=== PATIENT | male | born 1950 | race Caucasian/White ===

== ENCOUNTER 2016-09-18 21:30 | Observation (INO) | payer OTHER ==
[~2016-09-18] VITALS: Ht 167.6 cm; Wt 78.0 kg
[2016-09-18 21:31] VITALS: BP 191/102; PULSE 100; RESP 16; TEMP 98.5; O2SAT 97
[2016-09-18] MEDS ORDERED: MULT1TAB85 PO (22:11)
[2016-09-18] MEDS ORDERED: ASPI1TAB69 PO (22:11)
--- NOTE | 2016-09-18 22:11 | PD ---
Physical Exam Time Seen by Provider: 20:08 Narrative 65 y/o male presents with sob for 4 days. Dyspnea with exertion. Denies cp, cough or congestion, Lower extremity edema. Flew to [facility] 3 weeks ago. Reports that he drives frequently. denies hx of chf, cad, dvt/pe. vss Seen at triage desk. Awaiting bed placement. Data Data Last Documented VS Vital Signs Date Time Temp Pulse Resp B/P Pulse Ox O2 Delivery O2 Flow Rate FiO2 09/18/16 21:31 98.5 100 16 191/102 97 Room Air [facility] Medical Record Reviewed: Yes Supervised Visit with PIA: Jefe Montiel September 18, 2016 22:11
[2016-09-19] VITALS (12 sets, daily range): BP systolic 125–182; BP diastolic 71–106; PULSE 70–98; RESP 16–22; TEMP 96.2–98.7; O2SAT 92–96
[2016-09-19] MEDS ORDERED: SODIUM CHLORIDE 0.9% FLUSH 10 ML FLUSH IVF PRN (00:15)
[2016-09-19 00:51] LABS: AUTOMATED NEUTROPHIL # 7.1 TH/MM3 (1.8-7.7); BASOPHIL # 0.1 TH/MM3 (0-0.2); EOSINOPHIL # 0.1 TH/MM3 (0-0.4); EOSINOPHIL % 0.8 % (0.0-4.0); HEMATOCRIT 39.5 % (39.0-51.0); HEMO FLAGS DIFF FINAL; LYMPH % 27.5 % (9.0-44.0); LYMPHOCYTE # 3.4 TH/MM3 (1.0-4.8); MEAN CORPUSCULAR HEMOGLOBIN 27.5 PG (27.0-34.0); MEAN CORPUSCULAR HGB CONC 33.6 % (32.0-36.0); MONO % 13.1 % (0.0-8.0); NEUT % 57.6 % (16.0-70.0); PLATELET COUNT 198 TH/MM3 (150-450); RED BLOOD COUNT 4.82 MIL/MM3 (4.50-5.90); RED CELL DISTRIBUTION WIDTH 13.7 % (11.6-17.2); WHITE BLOOD COUNT 12.4 TH/MM3 (4.0-11.0)
--- NOTE | 2016-09-19 00:51 | RADRPT ---
EXAM DATE/TIME: 09/19/2016 00:02 [facility] COMPARISON: No previous studies available for comparison. INDICATIONS : Shortness of breath. MEDICAL HISTORY : None. SURGICAL HISTORY : None. ENCOUNTER: Initial ACUITY: 3 days PAIN SCORE: 0/10 LOCATION: Bilateral chest FINDINGS: The cardiac silhouette is enlarged in transverse diameter. The lungs are free of acute parenchymal op acity. No effusions are identified. The aortic knob is prominent with tortuosity of the descending th oracic aorta. CONCLUSION: 1. Cardiomegaly. No acute pulmonary disease. Syed Edmonds MD on September 19, 2016 at 0:49 Board Certified Radiologist. This report was verified electronically.
--- NOTE | 2016-09-19 01:07 | PD ---
HPI . Dyspnea Chief Complaint: Respiratory Symptoms Time Seen by Provider: 01:04 Travel History International Travel<30 days: No Contact w/Intl Traveler<30days: No Traveled to known affect area: No History of Present Illness HPI Patient presents complaining with dyspnea on exertion for 3-4 days. The symptoms have waxed and waned. 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 He denies any chest pain. He does admit to mild ankle swelling. He denies any previous similar history. He denies any chronic medical problems. He states that he has not seen a physician for checkup in 5 years or so. His dyspnea is exacerbated by ambulation and by lying on his side. No relieving symptoms. Symptoms are mild. PFSH Past Medical History Medical History: Denies Significant Hx Tetanus Vaccination: > 5 Years Influenza Vaccination: No Past Surgical History Surgical History: No Previous Surgery Social History Alcohol Use: No Tobacco Use: Yes (1 PPD) Substance Use: No Allergies-Medications (Allergen,Severity, Reaction): Coded Allergies: No Known Allergies (Unverified , 09/19/16) Reported Meds & Prescriptions Reported Meds & Active Scripts Active Reported Multivitamin Men (Multiple Vitamins W/ Minerals) 1 Tab Tab 1 Tab PO DAILY Aspirin 81 Mg Tabdr 81 Mg PO DAILY Review of Systems Except as stated in HPI: all other systems reviewed are Neg General / Constitutional: No: Fever, Chills Cardiovascular: No: Chest Pain or Discomfort Respiratory: Positive: Shortness of Breath Musculoskeletal: Positive: Edema Physical Exam Narrative GENERAL: Patient is awake and alert and in no acute distress. SKIN: Warm and dry. HEAD: Atraumatic. Normocephalic. EYES: Pupils equal and round. Extraocular movements are intact. ENT: No nasal bleeding or discharge. Mucous membranes pink and moist. NECK: Trachea midline. Neck is supple. CARDIOVASCULAR: Regular rate and rhythm. Heart sounds are normal. RESPIRATORY: No accessory muscle use. Lungs sound clear with full air movement throughout. His respiratory rate on arrival was 16 with a sat of 90% on room air. GASTROINTESTINAL: Abdomen soft, non-tender, nondistended. MUSCULOSKELETAL: No obvious deformities. Trace ankle edema. NEUROLOGICAL: Awake and alert. No obvious cranial nerve deficits. Motor grossly within normal limits. Normal speech. PSYCHIATRIC: Appropriate mood and affect; insight and judgment normal. Data Data Last Documented VS Vital Signs Date Time Temp Pulse Resp B/P Pulse Ox O2 Delivery O2 Flow Rate FiO2 09/19/16 02:20 95 Nasal Cannula 3 09/19/16 00:07 95 18 177/106 09/18/16 21:31 98.5 Orders Complete Blood Count With Diff (09/19/16 00:04) Comprehensive Metabolic Panel (09/19/16 00:04) B-Type Natriuretic Peptide (09/19/16 00:04) D-Dimer (09/19/16 00:04) Magnesium (Mg) (09/19/16 00:04) Ckmb (Isoenzyme) Profile (09/19/16 00:04) Troponin I (09/19/16 00:04) Iv Access Insert/Monitor (09/19/16 00:04) Electrocardiogram (09/19/16 00:04) Ecg Monitoring (09/19/16 00:04) Oximetry (09/19/16 00:04) Oxygen Administration (09/19/16 00:04) Chest, Single Ap (09/19/16 00:04) Sodium Chloride 0.9% Flush (Ns Flush) (09/19/16 00:15) Aspirin Chew (Aspirin Chew) (09/19/16 01:15) Nitroglycerin 2% Oint (Nitroglycerin 2% (09/19/16 01:15) Furosemide Inj (Lasix Inj) (09/19/16 01:15) Ct Pulmonary Angiogram (09/19/16 01:40) Iohexol 350 Inj (Omnipaque 350 Inj) (09/19/16 01:53) Labs Laboratory Tests Test 09/19/16 00:35 White Blood Count 12.4 TH/MM3 Red Blood Count 4.82 MIL/MM3 Hemoglobin 13.3 GM/DL Hematocrit 39.5 % Mean Corpuscular Volume 82.0 FL Mean Corpuscular Hemoglobin 27.5 PG Mean Corpuscular Hemoglobin 33.6 % Concent Red Cell Distribution Width 13.7 % Platelet Count 198 TH/MM3 Mean Platelet Volume 8.1 FL Neutrophils (%) (Auto) 57.6 % Lymphocytes (%) (Auto) 27.5 % Monocytes (%) (Auto) 13.1 % Eosinophils (%) (Auto) 0.8 % Basophils (%) (Auto) 1.0 % Neutrophils # (Auto) 7.1 TH/MM3 Lymphocytes # (Auto) 3.4 TH/MM3 Monocytes # (Auto) 1.6 TH/MM3 Eosinophils # (Auto) 0.1 TH/MM3 Basophils # (Auto) 0.1 TH/MM3 CBC Comment DIFF FINAL Differential Comment D-Dimer Quantitative (PE/DVT) 1.07 MG/L FEU Sodium Level 139 MEQ/L Potassium Level 3.9 MEQ/L Chloride Level 105 MEQ/L Carbon Dioxide Level 26.7 MEQ/L Anion Gap 7 MEQ/L Blood Urea Nitrogen 11 MG/DL Creatinine 0.86 MG/DL Estimat Glomerular Filtration 89 ML/MIN Rate Random Glucose 90 MG/DL Calcium Level 8.5 MG/DL Magnesium Level 1.8 MG/DL Total Bilirubin 0.9 MG/DL Aspartate Amino Transf 27 U/L (AST/SGOT) Alanine Aminotransferase 30 U/L (ALT/SGPT) Alkaline Phosphatase 93 U/L Total Creatine Kinase 91 U/L Troponin I 0.07 NG/ML B-Type Natriuretic Peptide 1221 PG/ML Total Protein 7.5 GM/DL Albumin 3.5 GM/DL MDM Medical Decision Making Medical Screen Exam Complete: Yes Emergency Medical Condition: Yes Interpretation(s) EKG shows a sinus rhythm. Inverted T waves in V5 and V6. He has no old EKGs for comparison. Differential Diagnosis Differential diagnosis of dyspnea includes but is not limited to congestive heart failure, pneumonia, wheezing, pneumothorax, pulmonary embolism Narrative Course Patient presents with dyspnea on exertion and possibly orthopnea. He also has mild ankle edema. Last Impressions Chest X-Ray 09/19/16 0004 Signed Impressions: Service Date/Time: Monday, September 19, 2016 00:02 - CONCLUSION: 1. Cardiomegaly. No acute pulmonary disease. Syed Edmonds MD The chest x-ray was independently viewed by me. CBC Diagram 09/19/16 00:35 BMP Diagram 09/19/16 00:35 Troponin is 0.07. BNP is 1221. D-dimer 1.07. Subsequent CT for PE is negative for PE. This patient has new onset CHF.. Physician Communication Physician Communication Dr. Lanier will admit for further evaluation and treatment. Diagnosis Primary Impression: CHF (congestive heart failure) Qualified Code: I50.9 - Acute congestive heart failure, unspecified congestive heart failure type Admitting Information Admitting Physician Requests: Admit Condition: Stable Oeters,Adenike Brea MD September 19, 2016 01:07
[2016-09-19] MEDS ORDERED: ASPIRIN 81 MG CHEW TAB CHEW ONE (01:15)
[2016-09-19] MEDS ORDERED: FUROSEMIDE 40 MG/4 ML VIAL IV PUSH ONE (01:15)
[2016-09-19] MEDS ORDERED: NITROGLYCERIN 2% OINT 1 GM PACKET TOPICAL ONE (01:15)
[2016-09-19 01:20] LABS: ALT (GPT) 30 U/L (12-78); ANION GAP 7 MEQ/L (5-15); AST (GOT) 27 U/L (15-37); BICARBONATE 26.7 MEQ/L (21.0-32.0); BLOOD UREA NITROGEN 11 MG/DL (7-18); CHLORIDE 105 MEQ/L (98-107); GLOMERULAR FILTRATION RATE 89 ML/MIN (>89); MAGNESIUM 1.8 MG/DL (1.5-2.5); POTASSIUM 3.9 MEQ/L (3.5-5.1); SODIUM (NA) 139 MEQ/L (136-145)
[2016-09-19 01:24] LABS: ALKALINE PHOSPHATASE 93 U/L (45-117); TOTAL BILIRUBIN ADULT 0.9 MG/DL (0.2-1.0)
[2016-09-19 01:25] LABS: CREATINE KINASE 91 U/L (39-308)
[2016-09-19] MEDS ORDERED: IOHEXOL 350 MG/ML 10 ML VIAL (for RAD DIAG) IV ONE (01:53)
--- NOTE | 2016-09-19 02:16 | RADRPT ---
EXAM DATE/TIME: 09/19/2016 01:52 [facility] COMPARISON: CHEST SINGLE AP, September 19, 2016, 0:02. INDICATIONS : Short of breath. IV CONTRAST: 74 cc Omnipaque 350 (iohexol) IV RADIATION DOSE: 23.45 CTDIvol (mGy) MEDICAL HISTORY : None SURGICAL HISTORY : None. ENCOUNTER: Initial ACUITY: 3 days PAIN SCALE: 0/10 LOCATION: chest TECHNIQUE: Volumetric scanning of the chest was performed using a pulmonary embolism protocol MIP images were re constructed. Using automated exposure control and adjustment of the mA and/or kV according to patien t size, radiation dose was kept as low as reasonably achievable to obtain optimal diagnostic quality images. FINDINGS: Small bilateral pleural effusions are present right greater than left. There is subsegmental atelecta sis in the left base. Examination of the mediastinum demonstrates no abnormally enlarged lymph nodes by CT criteria. No axillary or hilar abnormalities are identified. Coronary artery calcifications are present. The visualized upper abdomen demonstrates no abnormality. The heart is enlarged. Examination of the pulmonary vasculature demonstrates good filling of the main, lobar and segmental b ranches. There are no filling defects to suggest pulmonary embolism. Multiplanar reconstructions are also unremarkable. CONCLUSION: 1. No evidence of pulmonary embolism. 2. Cardiomegaly and small bilateral effusions Syed Edmonds MD on September 19, 2016 at 2:12 Board Certified Radiologist. This report was verified electronically.
[2016-09-19] MEDS ORDERED: SODIUM CHLORIDE 0.9% FLUSH 10 ML FLUSH IV FLUSH PRN (03:15)
[2016-09-19] MEDS ORDERED: NALOXONE HCL 0.4 MG/ML AMP IV PRN (03:15)
--- NOTE | 2016-09-19 04:22 | HHI.HP ---
[facility] Service [place] [facility] Primary Care Physician No Primary Care Physician Admission Diagnosis CHF Diagnoses: (1) CHF (congestive heart failure) (2) Leukocytosis (3) Tobacco abuse Chief Complaint: Fatigue and shortness of breath Travel History International Travel<30 Days: No Contact w/Intl Traveler <30 Da: No Traveled to Known Affected Are: No History of Present Illness Mr. Benton is a 65 year-old male with tobacco abuse who presented to the ER on for evaluation of complaints of fatigue and shortness of breath. The patient is seen in the emergency room and states that symptoms started on Sunday09/15/16: He states he felt tired and short of breath for much of the day but symptoms resolved spontaneously. On Sunday, he worked outside doing yard work and felt fine. He denies any symptomatology on Sunday. However, on Sunday, he says he felt poorly again and symptoms recurred while walking a mere 20 feet within house. By Sunday09/18/16 he noted that his ankles were swelling and he still felt fatigued and short of breath. He denies any recent fevers, chest pain, cold or flu symptoms, or nausea, vomiting, diarrhea, black stool, red stool, or pain with urination. Reports increased stress. Significant findings: BNP - 1221, Troponin I - 0.07 D-dimer elevated at 1.07 CXR - cardiomegaly; no acute pulmonary disease. CT pulmonary angiogram - no evidence of pulmonary embolism; cardiomegaly and small bilateral effusions. Review of Systems Except as stated in HPI: all other systems reviewed are Neg Past Family Social History Past Medical History Tobacco Abuse . Past Surgical History Denies ever having any surgeries . Reported Medications Reported Meds & Active Scripts Active Reported Multivitamin Men (Multiple Vitamins W/ Minerals) 1 Tab Tab 1 Tab PO DAILY Aspirin 81 Mg Tabdr 81 Mg PO DAILY . Allergies: Coded Allergies: No Known Allergies (Unverified , 09/19/16) Active Ordered Medications Current Medications Sodium Chloride (NS Flush) 2 ml UNSCH PRN IVF FLUSH AFTER USING IV ACCESS Last administered on 09/19/16 02:06; Start 09/19/16 at 00:15; Stop 09/19/16 at 03:21; Status DC Aspirin (Aspirin Chew) 324 mg ONCE ONCE CHEW Last administered on 09/19/16 02: 06; Start 09/19/16 at 01:15; Stop 09/19/16 at 01:16; Status DC Nitroglycerin (Nitroglycerin 2% Oint) 1 inch ONCE ONCE TOPICAL Last administered on 09/19/16 02:06; Start 09/19/16 at 01:15; Stop 09/19/16 at 01:16; Status DC Furosemide (Lasix Inj) 40 mg ONCE ONCE IV PUSH Last administered on 09/19/16 02:06; Start 09/19/16 at 01:15; Stop 09/19/16 at 01:16; Status DC Iohexol (Omnipaque 350 Inj) 74 ml STK-MED ONCE IV Last administered on 01:53; Start 09/19/16 at 01:53; Stop 09/19/16 at 01:55; Status DC Sodium Chloride (NS Flush) 2 ml UNSCH PRN IV FLUSH FLUSH AFTER USING IV ACCESS ; Start 09/19/16 at 03:15 Sodium Chloride (NS Flush) 2 ml BID IV FLUSH ; Start 09/19/16 at 09:00 Naloxone HCl (Narcan Inj) 0.4 mg UNSCH PRN IV SEE LABEL COMMENTS; Start at 03:15 Aspirin (Ecotrin Ec) 325 mg DAILY PO ; Start 09/19/16 at 09:00 . Family History Father - [place] at age 40 Mother lived until the age of 95 . Social History ETOH: [place]- 1 glass per day Tobacco: smokes 1 PPD - states he doesn't smoke the full cigarettes - chews on them more than inhales Works as an senior net engineer . Physical Exam Vital Signs Vital Signs Date Time Temp Pulse Resp B/P Pulse Ox O2 Delivery O2 Flow Rate FiO2 09/19/16 04:00 84 16 149/84 95 Nasal Cannula 3 09/19/16 02:20 95 Nasal Cannula 3 09/19/16 02:00 98 16 182/99 95 Nasal Cannula 3 09/19/16 01:00 92 16 163/99 95 3 09/19/16 00:07 95 18 177/106 94 Room Air 09/18/16 21:31 98.5 100 16 191/102 97 Room Air Physical Exam GENERAL: This is a diaphoretic male patient, in no apparent distress. SKIN: Cool and dry. Multiple linear wounds attributed to Sunday's yard work by patient. HEAD: Atraumatic. Normocephalic. EYES: No scleral icterus. No injection or drainage. ENT: Nose without bleeding, purulent drainage. NECK: Trachea midline. No JVD or lymphadenopathy. CARDIOVASCULAR: Regular rate and rhythm without murmurs, gallops, or rubs. 1+ ankle/pedal edema. RESPIRATORY: Clear to auscultation. Breath sounds equal bilaterally. No wheezes , rales, or rhonchi. GASTROINTESTINAL: Abdomen soft, non-tender, nondistended. No guarding. MUSCULOSKELETAL: Extremities without clubbing, cyanosis, or edema. No calf tenderness. NEUROLOGICAL: Awake and alert. Motor and sensory grossly within normal limits. Normal speech. . . Laboratory Laboratory Tests Test 09/19/16 00:35 White Blood Count 12.4 Red Blood Count 4.82 Hemoglobin 13.3 Hematocrit 39.5 Mean Corpuscular Volume 82.0 Mean Corpuscular Hemoglobin 27.5 Mean Corpuscular Hemoglobin 33.6 Concent Red Cell Distribution Width 13.7 Platelet Count 198 Mean Platelet Volume 8.1 Neutrophils (%) (Auto) 57.6 Lymphocytes (%) (Auto) 27.5 Monocytes (%) (Auto) 13.1 Eosinophils (%) (Auto) 0.8 Basophils (%) (Auto) 1.0 Neutrophils # (Auto) 7.1 Lymphocytes # (Auto) 3.4 Monocytes # (Auto) 1.6 Eosinophils # (Auto) 0.1 Basophils # (Auto) 0.1 CBC Comment DIFF FINAL Differential Comment D-Dimer Quantitative (PE/DVT) 1.07 Sodium Level 139 Potassium Level 3.9 Chloride Level 105 Carbon Dioxide Level 26.7 Anion Gap 7 Blood Urea Nitrogen 11 Creatinine 0.86 Estimat Glomerular Filtration 89 Rate Random Glucose 90 Calcium Level 8.5 Magnesium Level 1.8 Total Bilirubin 0.9 Aspartate Amino Transf 27 (AST/SGOT) Alanine Aminotransferase 30 (ALT/SGPT) Alkaline Phosphatase 93 Total Creatine Kinase 91 Troponin I 0.07 B-Type Natriuretic Peptide 1221 Total Protein 7.5 Albumin 3.5 Result Diagram: 09/19/16 0035 09/19/16 0035 Imaging Current Medications Sodium Chloride (NS Flush) 2 ml UNSCH PRN IVF FLUSH AFTER USING IV ACCESS Last administered on 09/19/16 02:06; Start 09/19/16 at 00:15; Stop 09/19/16 at 03:21; Status DC Aspirin (Aspirin Chew) 324 mg ONCE ONCE CHEW Last administered on 09/19/16 02: 06; Start 09/19/16 at 01:15; Stop 09/19/16 at 01:16; Status DC Nitroglycerin (Nitroglycerin 2% Oint) 1 inch ONCE ONCE TOPICAL Last administered on 09/19/16 02:06; Start 09/19/16 at 01:15; Stop 09/19/16 at 01:16; Status DC Furosemide (Lasix Inj) 40 mg ONCE ONCE IV PUSH Last administered on 09/19/16 02:06; Start 09/19/16 at 01:15; Stop 09/19/16 at 01:16; Status DC Iohexol (Omnipaque 350 Inj) 74 ml STK-MED ONCE IV Last administered on 01:53; Start 09/19/16 at 01:53; Stop 09/19/16 at 01:55; Status DC Sodium Chloride (NS Flush) 2 ml UNSCH PRN IV FLUSH FLUSH AFTER USING IV ACCESS ; Start 09/19/16 at 03:15 Sodium Chloride (NS Flush) 2 ml BID IV FLUSH ; Start 09/19/16 at 09:00 Naloxone HCl (Narcan Inj) 0.4 mg UNSCH PRN IV SEE LABEL COMMENTS; Start at 03:15 Aspirin (Ecotrin Ec) 325 mg DAILY PO ; Start 09/19/16 at 09:00 . Assessment and Plan Problem List: (1) CHF (congestive heart failure) ICD Code: I50.9 Status: Acute (2) Leukocytosis ICD Code: D72.829 Status: Resolved (3) Tobacco abuse ICD Code: Z72.0 Status: Chronic Assessment and Plan CHF - BNP - 1221, Troponin I - 0.07 - Continuous cardiac telemetry to monitor for cardiac arrhythmia - Intake and output every shift to monitor fluid balance - Lasix 20 mg IV twice a day - Consult cardiology - assistance appreciated - 2D echocardiogram - Serial cardiac enzymes to rule out - check TSH to r/o thyroid disease as a contributing factor - check lipid profile to check for hyperlipidemia as a contributing factor Leukocytosis with monocytosis - patient is afebrile and without symptoms of viral illness - will recheck CBC in a.m. and follow results Tobacco abuse - encouraged cessation - patient plans to quit Written by Whitney Lora, acting as scribe for Dr. Lanier on 09/19/16 at 04:14. This note was transcribed by scribe [Whitney Lora]. I, Dr. Melissa Lanier personally performed the history, physical exam, and medical decision making; and confirmed the accuracy of the information in the transcribed note. Authenticated by Dr. Melissa Lanier on 09/19/16 at 04:14. Discussed Condition With Patient and ER physician . Problem Qualifiers (1) CHF (congestive heart failure): Qualified Code: I50.21 - Acute systolic congestive heart failure Whitney Lora September 19, 2016 04:22 Melissa Lanier MD Oct 30, 2016 11:43
[2016-09-19] MEDS ORDERED: ASPIRIN EC 325 MG TABEC PO SCH (09:00)
[2016-09-19] MEDS: SODIUM CHLORIDE 0.9% FLUSH 10 ML FLUSH IV FLUSH SCH ×2 (09:30→20:29)
[2016-09-19] MEDS: FUROSEMIDE 20 MG/2 ML VIAL IV PUSH SCH ×2 (09:30→18:19)
--- NOTE | 2016-09-19 11:08 | EC ---
Study Study Date:09/19/2016 STUDY CONCLUSIONS SUMMARY - Left ventricle: The cavity size was at the upper limits of normal. Systolic function was severely reduced. The estimated ejection fraction was in the range of 20% to 25%. Diffuse hypokinesis. Features are consistent with a pseudonormal left ventricular filling pattern, with concomitant abnormal relaxation and increased filling pressure (grade 2 diastolic dysfunction). - Aortic valve: Mild to moderate regurgitation. - Mitral valve: Mild regurgitation. - Left atrium: The atrium was moderately dilated. - Right atrium: The atrium was mildly dilated. - Tricuspid valve: Mild regurgitation. - Pulmonary arteries: PA peak pressure: 74mm Hg (S). If LV function is below 40, please consider prescribing an ACEI or ARB or document rationale for non-use. PROCEDURE DATA STUDY STATUS: Elective. Procedure: Transthoracic echocardiography. Image quality was good. Scanning was performed from the parasternal, apical, and subcostal acoustic windows. Study completion: The patient tolerated the procedure well. Transthoracic echocardiography. M-mode, complete 2D, complete spectral Doppler, and color Doppler. Patient status: Inpatient. CARDIAC ANATOMY LEFT VENTRICLE: The cavity size was at the upper limits of normal. Systolic function was severely reduced. The estimated ejection fraction was in the range of 20% to 25%. Diffuse hypokinesis. Features are consistent with a pseudonormal left ventricular filling pattern, with concomitant abnormal relaxation and increased filling pressure (grade 2 diastolic dysfunction). AORTIC VALVE: [place]. Doppler: There was no stenosis. Mild to moderate regurgitation. MITRAL VALVE: The valve appears to be grossly normal. Doppler: There was no evidence for stenosis. Mild regurgitation. Peak gradient: 3mm Hg (D). LEFT ATRIUM: The atrium was moderately dilated. PULMONIC VALVE: Not well visualized. Doppler: There was no evidence for stenosis. Trace regurgitation. TRICUSPID VALVE: The valve appears to be grossly normal. Doppler: There was no evidence for stenosis. Mild regurgitation. RIGHT ATRIUM: The atrium was mildly dilated. PERICARDIUM: There was no pericardial effusion. BASIC MEASUREMENTS ADULT Normal Left ventricle LV internal dimension, ED, chordal level, 49.6 mm 43-52 PLAX LV internal dimension, ES, chordal level, *46.5 mm 23-38 PLAX Fractional shortening, chordal level, PLAX *6 % >29 LV posterior wall thickness, ED 8.41 mm IVS/LVPW ratio, ED *1.4 <1.3 Ventricular septum Septal thickness, ED 11.8 mm Aortic valve Leaflet separation 24 mm 15-26 Left atrium Anterior-posterior dimension 52 mm Right ventricle RV internal dimension, ED, PLAX *39.4 mm 19-38 BASIC MEASUREMENTS ADULT Normal Aortic valve Leaflet separation 24 mm 15-26 Aorta Root diameter, ED 36 mm 20-37 DOPPLER MEASUREMENTS ADULT Normal Main pulmonary artery Pressure, S *74 mm Hg =30 Mitral valve Peak E-wave velocity 89.3 cm/s Peak A-wave velocity 43.9 cm/s Peak gradient, D 3 mm Hg Peak E/A ratio 2 Maximal regurgitant velocity 518 cm/s Tricuspid valve Regurgitant peak velocity 296 cm/s Peak RV-RA gradient, S 35 mm Hg Maximal regurgitant velocity 296 cm/s Systemic veins Estimated CVP 20 mm Hg Right ventricle RV pressure, S *74 mm Hg <30 LEGEND: Mean values are shown as u=mean value. Asterisk (*) castro values outside specified normal range. Prepared and signed by Yannick Benson [id number]
--- NOTE | 2016-09-19 11:55 | EKG ---
Date Performed: 09/19/2016 Time Performed: 00:56:03 PTAGE: 65 years EKG: Sinus rhythm POSSIBLE LEFT ATRIAL ENLARGEMENT POSSIBLE LEFT VENTRICULAR HYPERTROPHY AND ST-T CHANGE ABNORMAL ECG NO PREVIOUS TRACING DOCTOR: Francesco Maya Interpretating Date/Time 09/19/2016 11:52:08
[2016-09-19 12:48] LABS: HDL CHOLESTEROL 38.3 MG/DL (40.0-60.0)
--- NOTE | 2016-09-19 12:52 | HHI.PR ---
Subjective Remarks Follow-up for new onset CHF. The patient denies any further shortness of breath. He states that his leg swelling as are improved. Reports good urine output. He states that recently he has been doing a lot of weekend projects, and is normally very active. States that after clearing trees on Sunday, he was feeling very tired on Sunday and Sunday. He denies any chest pain or prior history of AL. He states that he has had to sleep in a chair recently. He does smoke some, but states that he mostly chews on the cigarettes, and would switch back to chewing on toothpicks. He does not currently have a PCP. Objective Vitals Vital Signs Date Time Temp Pulse Resp B/P Pulse Ox O2 Delivery O2 Flow Rate FiO2 09/19/16 12:00 96.3 85 18 139/81 93 09/19/16 08:00 96.2 87 18 131/77 96 09/19/16 07:52 87 09/19/16 04:53 97.8 97 18 166/91 95 09/19/16 04:00 84 16 149/84 95 Nasal Cannula 3 09/19/16 02:20 95 Nasal Cannula 3 09/19/16 02:00 98 16 182/99 95 Nasal Cannula 3 09/19/16 01:00 92 16 163/99 95 3 09/19/16 00:07 95 18 177/106 94 Room Air 09/18/16 21:31 98.5 100 16 191/102 97 Room Air I/O 09/18/16 09/18/16 09/18/16 09/19/16 09/19/16 09/19/16 07:00 15:00 23:00 07:00 15:00 23:00 Output Total 3000 ml Balance -3000 ml Output Urine Total 3000 ml Result Diagram: 09/19/16 0035 09/19/16 [address] Angiography 09/19/16 0140 Signed Impressions: Service Date/Time: Monday, September 19, 2016 01:52 - CONCLUSION: 1. No evidence of pulmonary embolism. 2. Cardiomegaly and small bilateral effusions Syed Edmonds MD Chest X-Ray 09/19/16 0004 Signed Impressions: Service Date/Time: Monday, September 19, 2016 00:02 - CONCLUSION: 1. Cardiomegaly. No acute pulmonary disease. Syed Edmonds MD Objective Remarks GENERAL: Well-developed well-nourished. In no acute distress. SKIN: Warm and dry. No lesions noted. HEENT: Normocephalic. Pupils equal and round. Mucous membranes pink and moist. CARDIOVASCULAR: Regular rate and rhythm. No murmur appreciated. RESPIRATORY: No accessory muscle use. Clear to auscultation. Breath sounds equal bilaterally. GASTROINTESTINAL: Abdomen soft, non-tender, nondistended. Bowel sounds x4. MUSCULOSKELETAL: No obvious deformities. No clubbing or cyanosis. Trace edema. NEUROLOGICAL: Awake and alert. No focal neurological deficits. Moves upper and lower extremities spontaneously. Normal speech. PSYCHIATRIC: Appropriate mood and affect; insight and judgment normal. A/P Problem List: (1) CHF (congestive heart failure) ICD Code: I50.9 Status: Acute (2) Leukocytosis ICD Code: D72.829 Status: Acute (3) Tobacco abuse ICD Code: Z72.0 Status: Chronic Assessment and Plan 65-year-old male with Acute new-onset systolic CHF Echocardiogram shows EF 25% with severe reduction of systolic function and grade 2 diastolic dysfunction. BNP - 1221. Chest CT shows cardiomegaly and small bilateral pleural effusions. Troponin 0.07, 0.06. TSH within normal limits. Lipid profile essentially within normal limits. - Continuous cardiac telemetry to monitor for cardiac arrhythmia - Intake and output every shift to monitor fluid balance - Lasix 20 mg IV twice a day - Consult cardiology - assistance appreciated - Serial cardiac enzymes - Start carvedilol and lisinopril - Continue daily aspirin - Educated on fluid and sodium restrictions Leukocytosis with monocytosis - patient is afebrile and without symptoms of viral illness - will recheck CBC in a.m. and follow results Tobacco abuse - encouraged cessation - patient plans to quit Problem Qualifiers (1) CHF (congestive heart failure): Qualified Code: I50.21 - Acute systolic congestive heart failure Chris Cline September 19, 2016 12:52 Chris Cline September 19, 2016 12:52
[2016-09-19] MEDS: CARVEDILOL 6.25 MG TAB PO SCH ×2 (13:01→20:29)
--- NOTE | 2016-09-19 19:01 | MB ---
cc: OBED LEO MD DATE OF CONSULTATION: 09/19/16 HISTORY OF PRESENT ILLNESS Mr. Benton is a 65 year old white male with no previous cardiac history. Over the last week, he started to develop progressive shortness of breath, generalized weakness, fatigue. He has not had any chest pain. He has had lower extremity edema over the last two days. He was working outside on Sunday and on Sunday he felt poorly. He was diagnosed with congestive heart failure and diuresis was initiated with significant improvement in all of his symptoms. PAST MEDICAL HISTORY Negative for hypertension, dyslipidemia, diabetes mellitus, coronary artery disease or cerebrovascular accident. PAST SURGICAL HISTORY No major surgeries. MEDICATIONS 1. Multivitamin 2. Baby aspirin ALLERGIES None. SOCIAL HISTORY The patient is a smoker and drinks alcohol socially. He works as an project engineer. FAMILY HISTORY Positive for heart disease in his father who had a myocardial infarction at age 40. REVIEW OF SYSTEMS Otherwise negative. PHYSICAL EXAMINATION VITAL SIGNS: Blood pressure 125/73, pulse 70 and regular. HEENT: Negative, 2+ carotid upstrokes, no bruits. LUNGS: Clear. HEART: Regular with no murmurs, rubs or gallops ABDOMEN: Soft, no bruits. EXTREMITIES: With 1+ edema, 2+ distal pulses. NEUROLOGIC: Grossly nonfocal. CARDIOLOGY STUDIES Electrocardiogram was reviewed and showed normal sinus rhythm, left ventricular hypertrophy, diffuse ST-T changes. Echocardiogram reviewed and showed severe left ventricular systolic dysfunction with estimated ejection fraction of 20-35% with severe global hypokinesis, dilated left ventricle, mild to moderate aortic insufficiency, mild mitral regurgitation , four chamber enlargement and pulmonary artery pressure of 74 mmHg. LABORATORY DATA Hemoglobin 13.3, potassium 3.9, creatinine 0.9, troponin 0.07 and 0.06. CK 91 and 78. BNP 1221. LDL 93, HDL 38. DIAGNOSES 1. Acute congestive heart failure 2. Dilated cardiomyopathy with severe left ventricular systolic dysfunction 3. Smoking DISPOSITION Mr. Benton will be monitored on telemetry. We will continue therapy for congestive heart failure including diuresis with furosemide. Therapy with beta kelly and ANDREY inhibitor was initiated. We will closely monitor his renal function. He was strongly encouraged to quit smoking. We will place a Life vest prior to discharge. We will obtain ischemic workup as an outpatient. I will follow him for cardiology during his hospitalization and we will also see him back for followup in our office after discharge. We will repeat echocardiogram in three months and, if there is no improvement of his left ventricular function, we will proceed with the placement of implantable defibrillator. MD ROSE MARIE Armstrong/ /5:16 PM /6:41 PM DEA
[2016-09-20 03:55] VITALS: BP 162/94; PULSE 87; RESP 18; TEMP 98.8; O2SAT 87
[2016-09-20] MEDS ORDERED: ENALAPRILAT 2.5 MG/2 ML VIAL IV PUSH ONE (05:30)
[2016-09-20 05:58] LABS: AUTOMATED NEUTROPHIL # 6.5 TH/MM3 (1.8-7.7); BASOPHIL # 0.1 TH/MM3 (0-0.2); BASOPHIL % 0.8 % (0.0-2.0); EOSINOPHIL # 0.3 TH/MM3 (0-0.4); EOSINOPHIL % 2.5 % (0.0-4.0); HEMATOCRIT 41.1 % (39.0-51.0); HEMO FLAGS DIFF FINAL; LYMPH % 22.5 % (9.0-44.0); LYMPHOCYTE # 2.4 TH/MM3 (1.0-4.8); MEAN CELL VOLUME 82.4 FL (80.0-100.0); MEAN CORPUSCULAR HEMOGLOBIN 27.8 PG (27.0-34.0); MEAN CORPUSCULAR HGB CONC 33.7 % (32.0-36.0); MONO % 12.4 % (0.0-8.0); NEUT % 61.8 % (16.0-70.0); PLATELET COUNT 210 TH/MM3 (150-450); RED BLOOD COUNT 4.98 MIL/MM3 (4.50-5.90); RED CELL DISTRIBUTION WIDTH 13.8 % (11.6-17.2); WHITE BLOOD COUNT 10.5 TH/MM3 (4.0-11.0)
[2016-09-20 06:06] LABS: BICARBONATE 27.8 MEQ/L (21.0-32.0); POTASSIUM 3.5 MEQ/L (3.5-5.1)
[2016-09-20 06:47] VITALS: BP 154/91; PULSE 84; RESP 18; O2SAT 95
[2016-09-20 08:05] VITALS: BP 152/91; PULSE 89; RESP 19; TEMP 98.2; O2SAT 97
[2016-09-20 08:10] VITALS: PULSE 85
[2016-09-20] MEDS ORDERED: LISINOPRIL 10 MG TAB PO SCH (09:00)
[2016-09-20] MEDS ORDERED: ASPIRIN EC 325 MG TABEC PO SCH (09:00)
[2016-09-20] MEDS ORDERED: LISINOPRIL 5 MG TAB PO SCH (09:00)
--- NOTE | 2016-09-20 09:09 | HHI.PR ---
Subjective Remarks Follow-up for new onset CHF. Patient denies any shortness of breath overnight. He states that he walked last night around the unit with his daughter, denies any dyspnea on exertion or chest pain. He understands the need for lifestyle modifications and has questions about that. He understands the need for continued outpatient follow-up. Agreeable for LifeVest, discussed with RN to arrange. The patient has no other acute complaints at this time. Objective Vitals Vital Signs Date Time Temp Pulse Resp B/P Pulse Ox O2 Delivery O2 Flow Rate FiO2 09/20/16 08:05 98.2 89 19 152/91 97 09/20/16 06:47 84 18 154/91 95 09/20/16 03:55 98.8 87 18 162/94 87 09/19/16 23:56 98.7 73 22 154/74 96 09/19/16 23:12 72 09/19/16 19:14 98.5 70 18 144/71 95 09/19/16 16:00 96.2 70 18 125/73 92 09/19/16 12:00 96.3 85 18 139/81 93 I/O 09/19/16 09/19/16 09/19/16 09/20/16 09/20/16 09/20/16 07:00 15:00 23:00 07:00 15:00 23:00 Intake Total 1330 ml 210 ml Output Total 3000 ml 1800 ml 650 ml Balance -3000 ml -470 ml -440 ml Intake Oral 1330 ml 210 ml Output Urine Total 3000 ml 1800 ml 650 ml # Voids 3 # Bowel Movements 0 Result Diagram: 09/20/16 0432 09/20/16 [address] Angiography 09/19/16 0140 Signed Impressions: Service Date/Time: Monday, September 19, 2016 01:52 - CONCLUSION: 1. No evidence of pulmonary embolism. 2. Cardiomegaly and small bilateral effusions Syed Edmonds MD Chest X-Ray 09/19/16 0004 Signed Impressions: Service Date/Time: Monday, September 19, 2016 00:02 - CONCLUSION: 1. Cardiomegaly. No acute pulmonary disease. Syed Edmonds MD Objective Remarks GENERAL: Well-developed well-nourished. In no acute distress. SKIN: Warm and dry. No lesions noted. HEENT: Normocephalic. Pupils equal and round. Mucous membranes pink and moist. CARDIOVASCULAR: Regular rate and rhythm. No murmur appreciated. RESPIRATORY: No accessory muscle use. Clear to auscultation. Breath sounds equal bilaterally. GASTROINTESTINAL: Abdomen soft, non-tender, nondistended. Bowel sounds x4. MUSCULOSKELETAL: No obvious deformities. No clubbing or cyanosis. No edema. NEUROLOGICAL: Awake and alert. No focal neurological deficits. Moves upper and lower extremities spontaneously. Normal speech. PSYCHIATRIC: Appropriate mood and affect; insight and judgment normal. A/P Problem List: (1) CHF (congestive heart failure) ICD Code: I50.9 Status: Acute (2) Leukocytosis ICD Code: D72.829 Status: Resolved (3) Tobacco abuse ICD Code: Z72.0 Status: Chronic Assessment and Plan 65-year-old male with Acute new-onset systolic CHF Echocardiogram shows EF 25% with severe reduction of systolic function and grade 2 diastolic dysfunction. BNP - 1221. Chest CT shows cardiomegaly and small bilateral pleural effusions. Troponin 0.07, 0.06, 0.07. TSH within normal limits. Lipid profile essentially within normal limits. - Telemetry monitoring - Intake and output every shift to monitor fluid balance. Diuresed well,-3000 over the first day and -900 over the second day - Diuresed with IV Lasix, change to oral at discharge - Consulted cardiology, assistance appreciated, recommends continue medical management, LifeVest, and further workup as outpatient - Started carvedilol and lisinopril - Continue daily aspirin - Educated on fluid and sodium restrictions Leukocytosis - patient is afebrile and without symptoms of viral illness - Repeat CBC with improvement and WBCs, elevation was possibly reactive Tobacco abuse - encouraged cessation - patient plans to quit Discharge Planning Discussed with Dr. Alejo, will reevaluate the patient this afternoon. If cleared by cardiology, Discharge patient to home Condition on discharge: Improved Heart healthy Diet as tolerated Regular activity Rx written: Carvedilol, lisinopril Follow-up with primary care physician and cardiology Problem Qualifiers (1) CHF (congestive heart failure): Qualified Code: I50.21 - Acute systolic congestive heart failure Chris Cline September 20, 2016 09:09
[2016-09-20] MEDS ORDERED: FURO1TAB62 PO (09:13)
[2016-09-20] MEDS ORDERED: CARV6.25 PO (09:13)
[2016-09-20] MEDS ORDERED: LISI10TA3 PO (09:13)
[2016-09-20] MEDS ORDERED: ASPIRIN 81 MG CHEW TAB PO SCH (09:21)
[2016-09-20] MEDS: SODIUM CHLORIDE 0.9% FLUSH 10 ML FLUSH IV FLUSH SCH (09:28)
[2016-09-20] MEDS: CARVEDILOL 6.25 MG TAB PO SCH (09:28)
[2016-09-20] MEDS: FUROSEMIDE 20 MG/2 ML VIAL IV PUSH SCH (09:29)
[2016-09-20 12:00] VITALS: BP 137/85; PULSE 68; RESP 18; TEMP 98.1; O2SAT 96
--- NOTE | 2016-09-20 14:44 | PD.CARD.PN ---
Subjective Subjective Remarks No CP or SOB, improving with diuresis Objective Medications Current Medications Medications (Trade) Dose Ordered Sig/Alix Route Start Time Stop Time Status Last Admin (NS Flush) 2 ml UNSCH PRN IV FLUSH 09/19/16 03:15 (NS Flush) 2 ml BID IV FLUSH 09/19/16 09:00 09/20/16 09:28 (Narcan Inj) 0.4 mg UNSCH PRN IV 09/19/16 03:15 (Coreg) 6.25 mg Q12HR PO 09/19/16 12:30 09/20/16 09:28 (Prinivil) 10 mg DAILY PO 09/20/16 09:00 09/20/16 09:28 (Aspirin Chew) 81 mg DAILY PO 09/20/16 09:21 09/20/16 09:28 (Lasix) 20 mg DAILY PO 09/21/16 09:00 Vital Signs / I&O Vital Signs Date Time Temp Pulse Resp B/P Pulse Ox O2 Delivery O2 Flow Rate FiO2 09/20/16 12:00 98.1 68 18 137/85 96 09/20/16 08:10 85 09/20/16 08:05 98.2 89 19 152/91 97 09/20/16 06:47 84 18 154/91 95 09/20/16 03:55 98.8 87 18 162/94 87 09/19/16 23:56 98.7 73 22 154/74 96 09/19/16 23:12 72 09/19/16 19:14 98.5 70 18 144/71 95 09/19/16 16:00 96.2 70 18 125/73 92 I/O 09/19/16 09/19/16 09/19/16 09/20/16 09/20/16 09/20/16 07:00 15:00 23:00 07:00 15:00 23:00 Intake Total 1330 ml 210 ml Output Total 3000 ml 1800 ml 650 ml 600 ml Balance -3000 ml -470 ml -440 ml -600 ml Intake Oral 1330 ml 210 ml Output Urine Total 3000 ml 1800 ml 650 ml 600 ml # Voids 3 # Bowel Movements 0 Physical Exam GENERAL: In NAD SKIN: Warm and dry. HEAD: Normocephalic. EYES: No scleral icterus. No injection or drainage. NECK: Supple, trachea midline. No JVD or lymphadenopathy. CARDIOVASCULAR: Regular rate and rhythm without murmurs, gallops, or rubs. RESPIRATORY: Breath sounds equal bilaterally. No accessory muscle use. GASTROINTESTINAL: Abdomen soft, non-tender, nondistended. MUSCULOSKELETAL: No cyanosis, or edema. Laboratory Laboratory Tests Test 09/19/16 09/20/16 16:50 04:32 Troponin I 0.07 NG/ML White Blood Count 10.5 TH/MM3 Red Blood Count 4.98 MIL/MM3 Hemoglobin 13.9 GM/DL Hematocrit 41.1 % Mean Corpuscular Volume 82.4 FL Mean Corpuscular Hemoglobin 27.8 PG Mean Corpuscular Hemoglobin 33.7 % Concent Red Cell Distribution Width 13.8 % Platelet Count 210 TH/MM3 Mean Platelet Volume 8.5 FL Neutrophils (%) (Auto) 61.8 % Lymphocytes (%) (Auto) 22.5 % Monocytes (%) (Auto) 12.4 % Eosinophils (%) (Auto) 2.5 % Basophils (%) (Auto) 0.8 % Neutrophils # (Auto) 6.5 TH/MM3 Lymphocytes # (Auto) 2.4 TH/MM3 Monocytes # (Auto) 1.3 TH/MM3 Eosinophils # (Auto) 0.3 TH/MM3 Basophils # (Auto) 0.1 TH/MM3 CBC Comment DIFF FINAL Differential Comment Sodium Level 140 MEQ/L Potassium Level 3.5 MEQ/L Chloride Level 103 MEQ/L Carbon Dioxide Level 27.8 MEQ/L Anion Gap 9 MEQ/L Blood Urea Nitrogen 13 MG/DL Creatinine 0.90 MG/DL Estimat Glomerular Filtration 85 ML/MIN Rate Random Glucose 112 MG/DL Calcium Level 8.9 MG/DL Imaging Last Impressions CT Angiography 09/19/16 0140 Signed Impressions: Service Date/Time: Monday, September 19, 2016 01:52 - CONCLUSION: 1. No evidence of pulmonary embolism. 2. Cardiomegaly and small bilateral effusions Syed Edmonds MD Chest X-Ray 09/19/16 0004 Signed Impressions: Service Date/Time: Monday, September 19, 2016 00:02 - CONCLUSION: 1. Cardiomegaly. No acute pulmonary disease. Syed Edmonds MD Assessment and Plan Problem List: (1) Acute CHF (congestive heart failure) (2) Dilated cardiomyopathy (3) Smoking Assessment and Plan Improving with diuresis. Continue and titrate beta kelly and ANDREY-I. Renal fx stable. Place LifeVest today. Discharge home. Will schedule outpatient f/u. Juan Alejo MD September 20, 2016 14:44
[2016-09-20 16:03] VITALS: BP 145/82; PULSE 76; RESP 19; TEMP 98; O2SAT 96
[2016-09-21] MEDS ORDERED: FUROSEMIDE 20 MG TAB PO SCH (09:00)
== END 2016-09-20 19:44 | disposition home or self-care (01) ==
LOC: NEPC 21:30 → NEDA 09-19 03:16 → INTOOBSV 09-19 03:16 → NEPFCDU 09-19 04:50
PROVIDERS: ADMIT Internal Medicine; ATTEND Internal Medicine
DX: I50.21 Acute systolic (congestive) heart failure (principal); F17.210 Nicotine dependence, cigarettes, uncomplicated; R60.0 Localized edema; D72.821 Monocytosis (symptomatic); R53.83 Other fatigue; R53.1 Weakness; I42.0 Dilated cardiomyopathy
CPT/HCPCS: 71010; 71275; 80048; 80053; 80061; 82550; 83735; 83880; 84443; 84484; 85025; 85379; 93005; 93306; 96374; 99285; G0378; J1940; Q9967